=== PATIENT | female | born 1995 | race Two or more races ===

== ENCOUNTER 2020-11-03 04:13 | Emergency (ER) | payer OTHER ==
[~2020-11-03] VITALS: Ht 170.2 cm; Wt 109.0 kg
[2020-11-03 04:15] VITALS: BP 116/58
[2020-11-03] MEDS ORDERED: CEPH500C2 MT (05:19)
[2020-11-03] MEDS ORDERED: IBUP-2029 MT (05:19)
== END 2020-11-03 05:40 | disposition home or self-care (01) ==
LOC: ER 04:13
DX: L02.31 Cutaneous abscess of buttock (principal); Z98.890 Other specified postprocedural states
CPT/HCPCS: 99281; 99283